=== PATIENT | male | born 1980 ===

== ENCOUNTER → 2023-03-01 08:34 | Outpatient (CLI) | payer BC, SELFPAY ==
--- NOTE | ~2023-03-01 | CT_ITS ---
EXAMINATION: CT abdomen pelvis wo con DATE: 03/01/2023 08:49 INDICATION: Mid lower abdominal pain. Right inguinal hernia. TECHNIQUE: Computed tomography (CT) of the abdomen and pelvis was performed without intravenous contr ast. Automated exposure control and iterative reconstruction technique were employed. Exam dose: 101 9.53 mGy-cm total exam DLP. COMPARISON: None. FINDINGS: The included lung lama are clear of infiltrate or consolidation. Normal heart size. No pe ricardial or pleural effusion. The gallbladder is contracted. No hepatic, splenic, pancreatic, adrenal or renal space-occupying mass lesion is evident on this limited noncontrast examination. No bile duct or pancreatic duct dilatatio n. No urinary tract calculus or hydroureteronephrosis. Normal caliber of the abdominal aorta. The urinary bladder wall appears mildly diffusely prominent thickness. May be due to no bladder volum e. The prostate gland is unremarkable. Normal appendix. Diverticulosis of the left and right colon; no CT evidence of diverticulitis. No bow el obstruction, bowel wall thickening, pneumatosis or intraperitoneal free air. Normal caliber of the abdominal aorta. No intraperitoneal or retroperitoneal or pelvic mass lesion or adenopathy or ascites. Small fat-containing umbilical hernia. No right inguinal hernia is evident. Cannot exclude small fat- containing left inguinal hernia. Included skeletal structures are unremarkable. IMPRESSION: Normal appendix Diverticulosis of the colon; no evidence of diverticulitis Reviewed, dictated and finalized at [facility]. Reviewed, dictated and finalized at [facility] [employer]
== END ==
PROVIDERS: PCP Family Medicine; Visit Provider Nurse Practitioner Family
DX: K40.90 Unilateral inguinal hernia, without obstruction or gangrene, not specified as recurrent (principal); K57.30 Diverticulosis of large intestine without perforation or abscess without bleeding
CPT/HCPCS: 74176